=== PATIENT | female | born 1965 | race Caucasian/White ===

== ENCOUNTER 2024-08-12 05:33 | Day surgery (SDC) | payer OTHER ==
[~2024-08-12 05:33] MED LIST: [UNRECOGNIZED DRUG - OTHER]
[2024-08-12] MEDS ORDERED: CLINDAMYCIN PHOSPHATE 150 MG/ML (900mg) IV ONE (08:30)
[2024-08-12] MEDS ORDERED: EPINEPHRINE HCL/PF 1 MG/ML AMPUL IR ONE (08:30)
[2024-08-12] MEDS ORDERED: LIDOCAINE HCL 1%/EPINEPHRINE 20ML VIAL IJ ONE (08:30)
[2024-08-12] MEDS ORDERED: TRANEXAMIC ACID 100MG/1ML (1000MG) AMPUL IV ONE (09:15)
[2024-08-12] MEDS ORDERED: POVIDONE-IODINE 118 ML BOTT TOP ONE (09:15)
[2024-08-12] MEDS ORDERED: SUGAMMADEX SODIUM 200 MG/2 ML VIAL IV ONE (15:15)
[2024-08-12] MEDS ORDERED: MORPHINE SULFATE 4 MG/ML VIAL IV ONE ×2 (16:00→16:30)
== END 2024-08-12 19:35 | disposition home or self-care (01) ==
LOC: CIR.AMB 05:33
PROVIDERS: ATTEND Specialist
DX: E65 Localized adiposity (principal); N64.81 Ptosis of breast; Z88.0 Allergy status to penicillin